=== PATIENT | female | born 1945 | race Caucasian/White ===

== ENCOUNTER → 2016-11-26 | Outpatient (CLI) | payer OTHER ==
[~2016-11-26] MED LIST: ASCA500; CYAN10005 PO; ESTR1.252 PO; HYDR-5688 PO
--- NOTE | 2016-11-26 12:13 | DIAGNOSTIC IMAGING REPORT ---
L-SPINE FLEX/EXT BENDING MIN 6 CLINICAL HISTORY: SPINAL STENOSIS pain COMPARISON STUDY: 12/13/2013 FINDINGS: Unchanged scoliosis. Interval laminectomy and fusion at L4-L5. Grade 1 anterolisthesis L2 on L3 unchanged from the prior study. Considerable degenerative disc changes throughout. No evidence for compression deformity. With patient in flexion and extension there is no change in vertebral body alignment. IMPRESSION: Degenerative and postoperative change. Grade 1 anterolisthesis L2 on L3 with minimal changes L3 on L4. These are stable with flexion and extension. Electronically signed by: Dwight Pride M.D. 11/26/2016 12:12 PM Dictated Date/Time: 11/26/2016 12:11 PM
== END | disposition home or self-care (01) ==
LOC: C.RAD1850 11:33
PROVIDERS: ATTEND Neurological Surgery
DX: M48.06 Spinal stenosis, lumbar region (principal)

== ENCOUNTER → 2016-11-26 | Outpatient (CLI) | payer OTHER ==
--- NOTE | 2016-12-13 11:59 | CODING QUERY MEDICAL NECESSITY ---
SUPPORTING DIAGNOSIS NEEDED A supporting diagnosis is required for the test/procedure performed on this patient in order for us to be reimbursed by the patient's insurance. Please provide a supporting diagnosis for the following test/procedure listed below next to the test name along with your signature. *If there is no additional diagnosis for this patient that would support the following test/procedure please document that below next to the test/procedure. Test(s)/Procedure(s) that require a supporting diagnosis: * DXA BONE DENSITY DIAGNOSIS: * DOS: 11/26/16 Provider Signature: Date: Thank you Shanel Leyva [facility] Information Management Once completed, please kindly fax back to [phone] For questions please call [phone]
== END | disposition home or self-care (01) ==
LOC: C.MAMM 10:46
PROVIDERS: ATTEND Neurological Surgery
DX: Z13.820 Encounter for screening for osteoporosis (principal); M48.06 Spinal stenosis, lumbar region; M85.80 Other specified disorders of bone density and structure, unspecified site